=== PATIENT | male | born 1985 | race Caucasian/White ===

== ENCOUNTER 2017-03-01 04:25 | Emergency (ER) | payer SELFPAY ==
[2017-03-01 04:33] VITALS: BP 164/100; BMI 29.8
[2017-03-01] MEDS ORDERED: NS 1000 ML 1,000 ML ONE (04:33)
[2017-03-01] MEDS ORDERED: TORADOL 30 MG VIAL ONE (04:33)
[2017-03-01] MEDS ORDERED: ZOFRAN INJ 4 MG VIAL ONE (04:34)
[2017-03-01] MEDS ORDERED: ZOFRAN INJ 4 MG VIAL IVP ONE (04:40)
[2017-03-01] MEDS ORDERED: NS 1000 ML 1,000 ML IV ONE (04:40)
[2017-03-01] MEDS ORDERED: TORADOL 30 MG VIAL IVP ONE (04:40)
[2017-03-01] MEDS ORDERED: MORPHINE SULFATE INJ 4 MG IVP ONE ×2 (04:50→05:49)
[2017-03-01] MEDS ORDERED: MORPHINE SULFATE INJ 4 MG ONE ×2 (04:50→05:51)
--- NOTE | 2017-03-01 04:50 | DR.GENAD ---
HPI - PCP Primary Care Physician: nfd - Complaint/Symptoms Chief Complaint Doctors Comments: Patient states that on yesterday PM he had right sided flank pain and this AM the pain had radiated to the right inguinal area. Severe, pain level of 10, sharp, aggravated by motion Patient with associated nausea. Chief Complaint:: abd pain - Source History Provided: Patient - Mode of Arrival Mode of Arrival: Ambulatory - Timing Onset of Chief Complaint: 03/01/17 PMH - PMH Past Medical History: No Past Surgical History: Yes Surgical History: Abdominal Surgery Past Surgical History Comment: hernia repair - Family History History of Family Medical Conditions: No - Social History Does patient currently use any type of tobacco product: No Have you used tobacco products in the last 12 months: No Type of Tobacco Use: None Does any household member use tobacco: No Alcohol Use: None Do you use any recreational Drugs:: No Lives With: Family Lives Where: Home - infectious screening In the last 2 months have you had wt loss of >10#?: NO Have you had fever, night sweats or hemotysis?: No Have you traveled outside the country in the last 6 months?: No Isolation: Standard ROS - Review of Systems Eyes: No Symptoms Reported ENTM: No Symptoms Reported Respiratoy: No Symptoms Reported Cardiovascular: No Symptoms Reported Gastrointestinal/Abdominal: No Symptoms Reported Genitourinary: No Symptoms Reported Neurological: No Symptoms Reported Musculoskeletal: No Symptoms Reported Integumentary: No Symptoms Reported Hematologic/Lymphatic: No Symptoms Reported Endocrine: No Symptoms Reported Psychiatric: No Symptoms Reported All Other Systems: Reviewed and Negative PE - Vital Signs Vitals: Temperature 98.5 F Pulse Rate 98 Respiratory Rate 16 Blood Pressure 164/100 O2 Sat by Pulse Oximetry 96 - General General Appearance: Alert, Anxious - Head Head Exam: Normal Inspection, Atraumatic - Eyes Eye exam: Normal Appearance, PERRL, EOMI - ENT ENT Exam: Normal Exam External Ear Exam: Normal External Inspection TM/Canal Exam: Bilateral Normal Nose Exam: Normal Nose Exam Mouth Exam: Normal Inspection Throat Exam: Normal Inspection - Neck Neck Exam: Normal Inspection - Chest Chest Inspection: Normal Inspection - Respiratory Respiratory Exam: Normal Lung Sounds Bilat Respiratory Exam: Bilateral Clear to Auscultation - Cardiovascular Cardiovascular Exam: Regular Rate, Normal Rhythm - Abdominal Exam Abdominal Exam: Normal Inspection Abdominal Tenderness: RLQ, Other (right inguinal pain) - Extremities Extremities Exam: Normal Inspection, Full ROM - Back Back Exam: (L) CVA Tenderness - Neurologic Neurological Exam: Alert - Psychiatric Psychiatric Exam: Normal Affect, Anxious - Skin Skin Exam: Warm, Dry, Intact Course - Reevaluation 1st: Improved ROR - Labs Reviewed Laboratory Results Reviewed?: Yes (UA: 5+bld,Leuk +;rbc 80-100, wbc 15-20) Laboratory: Specimen Type Clean catch urine 03/01/17 04:43 Urine Color Yellow (YELLOW) 03/01/17 04:43 Urine Appearance Cloudy (CLEAR) 03/01/17 04:43 Urine pH 5.0 (5.0 - 8.0) 03/01/17 04:43 Ur Specific [place] 1.025 (1.000-1.030) 03/01/17 04:43 Urine Protein 3+ (NEGATIVE) 03/01/17 04:43 Urine Glucose (UA) Negative (NEGATIVE) 03/01/17 04:43 Urine Ketones Negative (NEGATIVE) 03/01/17 04:43 Urine Occult Blood 5+ (NEGATIVE) 03/01/17 04:43 Urine Nitrite Negative (NEGATIVE) 03/01/17 04:43 Urine Bilirubin Negative (NEGATIVE) 03/01/17 04:43 Urine Urobilinogen 1+ (NORMAL) 03/01/17 04:43 Ur Leukocyte Esterase 1+ (NEGATIVE) 03/01/17 04:43 Urine RBC 80-100 /HPF (NEGATIVE) 03/01/17 04:43 Urine WBC 15-20 /HPF (NEGATIVE) 03/01/17 04:43 Ur Squamous Epith Cells Rare /HPF (NEGATIVE) 03/01/17 04:43 Urine Bacteria 2+ /HPF (NEGATIVE) 03/01/17 04:43 Urine Mucus Moderate /HPF (NEGATIVE) 03/01/17 04:43 Ur Culture Indicated? Yes/culture set up 03/01/17 04:43 - XRAY XRAY Interpreted by: Radiologist (CT Abd/Pelv:A 4.5mm stone present in the right proximal ureter with mild-moderate obstructive change. Very faint areas of stone matrix are present involving the right kidney. Nonobstructing 2 mm stone in the uper pole of the left kidney) - Diagnosis Discharge Problem: Nephrolithiasis UTI (urinary tract infection) Qualifiers: Urinary tract infection type: acute cystitis Hematuria presence: with hematuria Qualified Code(s): N30.01 - Acute cystitis with hematuria - Discharge Plan Condition: Stable - Follow ups/Referrals Follow ups/Referrals: NFD,None [Primary Care Provider] - 3 days - Instructions
[2017-03-01 04:54] LABS: BILIRUBIN,URINE NEGATIVE (NEGATIVE); BLOOD/HEMOGLOBIN,URINE 5+ (NEGATIVE); GLUCOSE, URINE NEGATIVE (NEGATIVE); KETONES,URINE NEGATIVE (NEGATIVE); LEUKOCYTE ESTERASE ,URINE 1+ (NEGATIVE); NITRITES,URINE NEGATIVE (NEGATIVE); PROTEIN,URINE 3+ (NEGATIVE); UROBILINOGEN,URINE 1+ (NORMAL)
[2017-03-01 05:06] LABS: APPEARANCE,URINE CLOUDY (CLEAR); BACTERIA,URINE 2+ /HPF (NEGATIVE); COLOR,URINE YELLOW (YELLOW); MUCUS,URINE MODERATE /HPF (NEGATIVE); RBC,URINE 80-100 /HPF (NEGATIVE); SQUAMOUS EPITHELIAL CELL,UR RARE /HPF (NEGATIVE)
[2017-03-01] MEDS ORDERED: PHENERGAN INJ 25 MG ONE (05:51)
[2017-03-01] MEDS ORDERED: PHENERGAN INJ 25 MG IV ONE (05:52)
[2017-03-01] MEDS ORDERED: MORPHINE SULFATE INJ 2 MG ONE (05:52)
--- NOTE | 2017-03-01 06:02 | CT ---
HISTORY: Right flank pain Study: CT abdomen and pelvis without IV contrast Comparison: No priors Technique: Multiple axial images of the abdomen and pelvis were obtained from the lung bases to the pubic symph ysis without the administration of IV or oral contrast. Coronal and sagittal images are also review ed. Dose reduction techniques utilized automatic exposure control. Findings: The visualized portions of the lung bases are unremarkable. The splenic size is normal. Multiple acc essory spleens are present. The liver, pancreas, and adrenal glands are unremarkable in their CT jeffy earance. The gallbladder is unremarkable in its CT appearance. A 2 millimeter nonobstructing stone i s present in the upper pole of the left kidney. There is a 4.5 millimeter stone present in the right proximal ureter with mild-moderate obstructive change. There are very faint areas of stone matrix a re present involving the region of the right kidney. No significant mesenteric lymphadenopathy or s tranding can be observed. No free fluid or free air is seen within the abdomen. No bowel wall thic kening or bowel dilatation is present. The colon is unremarkable. Specifically, there is no divert iculosis noted within the sigmoid colon. The urinary bladder is grossly unremarkable. The bony stru ctures are grossly intact. IMPRESSION: 4.5 millimeter stone present in the right proximal ureter with mild-moderate obstructive change. Very faint areas of stone matrix are present involving the right kidney. Nonobstructing 2 millimeter stone in the upper pole of the left kidney. Reported By:
[2017-03-01] MEDS ORDERED: DILAUDID INJ ONE (06:31)
[2017-03-01] MEDS ORDERED: DILAUDID INJ IVP ONE (07:00)
== END 2017-03-01 07:55 | disposition home or self-care (01) ==
LOC: ER 04:25
DX: N20.0 Calculus of kidney (principal); N30.01 Acute cystitis with hematuria; R10.84 Generalized abdominal pain
CPT/HCPCS: 74176; 81001; 87086; 96365; 96374; 96375; 99283; A4222; J1885; J2270; J2405; J2550

== ENCOUNTER 2017-04-02 05:57 | Emergency (ER) | payer SELFPAY ==
[2017-04-02 06:10] VITALS: BP 145/87; BMI 29.8
[2017-04-02] MEDS ORDERED: TORADOL 30 MG VIAL ONE (06:15)
[2017-04-02] MEDS ORDERED: NS 1000 ML 1,000 ML IV ONE (06:15)
[2017-04-02] MEDS ORDERED: TORADOL 30 MG VIAL IVP ONE (06:15)
[2017-04-02] MEDS ORDERED: ZOFRAN INJ 4 MG VIAL IVP ONE (06:15)
[2017-04-02] MEDS ORDERED: ZOFRAN INJ 4 MG VIAL ONE (06:15)
[2017-04-02] MEDS ORDERED: NS 1000 ML 1,000 ML ONE (06:15)
[2017-04-02] MEDS ORDERED: MORPHINE SULFATE INJ 4 MG IVP ONE (06:31)
[2017-04-02] MEDS ORDERED: MORPHINE SULFATE INJ 4 MG ONE (06:32)
--- NOTE | 2017-04-02 06:36 | DR.GENAD ---
HPI - Complaint/Symptoms Chief Complaint Doctors Comments: Patient was diagnosed with renal stones one month ago; a 4.5mm stone present in the right proximal ureter with mild to moderate obstructive change.Very faint areas of stone matrix are present involving the right kidney. There is a nonobstructing 2mm stone in the upper pole of the left kidney. Patient was advised to follow up with urology. Today his pain is 10,severe onset just prior to arrival. Patient was also seen in [place] on last week for stones Chief Complaint:: BACK PAIN. RIGHT SIDE. ONSET 2 HOURS AGO. DENIES N/V. THINKS ITS A KIDNEY STONE. Self Treatment fo Chief Complaint: NONE - Source History Provided: Patient - Mode of Arrival Mode of Arrival: Ambulatory - Timing Onset of Chief Complaint: 04/02/17 PMH - PMH Past Medical History: No Past Surgical History: Yes Surgical History: Abdominal Surgery - Family History History of Family Medical Conditions: No - Social History Do you use any recreational Drugs:: No - infectious screening Have you traveled outside the country in the last 6 months?: No ROS - Review of Systems Eyes: No Symptoms Reported ENTM: No Symptoms Reported Respiratoy: No Symptoms Reported Cardiovascular: No Symptoms Reported Gastrointestinal/Abdominal: No Symptoms Reported Genitourinary: No Symptoms Reported Neurological: No Symptoms Reported Musculoskeletal: No Symptoms Reported Hematologic/Lymphatic: No Symptoms Reported Endocrine: No Symptoms Reported Psychiatric: No Symptoms Reported All Other Systems: Reviewed and Negative PE - Vital Signs Vitals: Temperature 98.7 F Pulse Rate 84 Respiratory Rate 17 Blood Pressure 145/87 O2 Sat by Pulse Oximetry 98 - General Limitations: No Limitations General Appearance: Alert, In Distress - Head Head Exam: Normal Inspection, Atraumatic - Eyes Eye exam: Normal Appearance, PERRL, EOMI - ENT ENT Exam: Normal Exam External Ear Exam: Normal External Inspection TM/Canal Exam: Bilateral Normal Nose Exam: Normal Nose Exam Mouth Exam: Normal Inspection Throat Exam: Normal Inspection - Neck Neck Exam: Normal Inspection, Full ROM - Chest Chest Inspection: Normal Inspection - Respiratory Respiratory Exam: Normal Lung Sounds Bilat Respiratory Exam: Bilateral Clear to Auscultation - Cardiovascular Cardiovascular Exam: Regular Rate, Normal Rhythm - Abdominal Exam Abdominal Exam: Normal Inspection, Normal Bowel Sounds Abdominal Tenderness: negative: RUQ, RLQ, LUQ, LLQ, Epigastrium, Suprapubic, Diffuse, Mild, Moderate, Severe, Other - Back Back Exam: Normal Inspection, Full ROM - Neurologic Neurological Exam: Alert, Oriented X3, CN II-XII Intact - Psychiatric Psychiatric Exam: Normal Affect, Normal Mood - Skin Skin Exam: Warm, Dry, Intact Course - Reevaluation 1st: Improved - Diagnosis Discharge Problem: Nephrolithiasis - Discharge Plan Condition: Stable - Follow ups/Referrals Follow ups/Referrals: NFD,None [Primary Care Provider] - 3 days - Instructions
== END 2017-04-02 07:35 | disposition home or self-care (01) ==
LOC: ER 05:57
DX: N20.0 Calculus of kidney (principal)
CPT/HCPCS: 96365; 96374; 96375; 99283; A4222; J1885; J2270; J2405